=== PATIENT | male | born 1990 | race American Indian/Alaskan Native ===

== ENCOUNTER 2017-01-04 03:58 | Emergency (ER) | payer SELFPAY ==
[2017-01-04 04:04] VITALS: BP 123/80
--- NOTE | 2017-01-04 08:14 | Emergency Department Report ---
ED General Adult HPI - General Chief complaint: Rectal Pain Stated complaint: RECTAL PAIN Time Seen by Provider: 01/04/17 07:13 Source: patient Mode of arrival: Ambulatory Limitations: No Limitations - History of Present Illness Initial comments: This is a 26-year-old male nontoxic, well nourished in appearance, no acute signs of distress presents to the ED complaining ofh hemorrhoidal pain intermittent 2 years. Patient denies follow-up with a general surgeon or primary care doctor. Patient said he has been dealing with this got to the ER which has been relieved at times and comes back intermittently. Patient denies any rectal bleeding, nausea, vomiting, chest pain, shortness of breath, numbness , tingling, headache or stiff neck. Denies any fever. Denies any allergies. Past medical history includes hemorrhoids. MD Complaint: hemorrhoids -: year(s) Radiation: non-radiation Severity scale (0 -10): 6 Quality: aching Consistency: intermittent Improves with: none Worsens with: none Associated Symptoms: denies other symptoms. denies: confusion, chest pain, cough, diaphoresis, fever/chills, headaches, loss of appetite, malaise, nausea/ vomiting, rash, seizure, shortness of breath, syncope, weakness Treatments Prior to Arrival: none - Related Data Previous Rx's Medication Instructions Recorded Last Taken Type Fluticasone [Flonase] 1 spray NS QDAY #1 bottle 05/23/16 Unknown Rx Ibuprofen [Motrin 600 MG tab] 600 mg PO Q8H PRN #30 tablet 05/23/16 Unknown Rx guaiFENesin/DEXTROMETHORPHAN 1 each PO Q12H #24 tab 05/23/16 Unknown Rx [Mucinex Dm ER 1,200-60 mg Tab] Hydrocortisone/Lidocaine/Aloe 1 each RC Q6H #1 kit 01/04/17 Unknown Rx [Sabrina-Ede 2-2% Kit] Allergies Allergy/AdvReac Type Severity Reaction Status Date / Time No Known Allergies Allergy Unverified 05/23/16 03:12 ED Review of Systems ROS: Stated complaint: RECTAL PAIN Other details as noted in HPI Constitutional: denies: chills, fever Eyes: denies: eye pain, eye discharge, vision change ENT: denies: ear pain, throat pain Respiratory: denies: cough, shortness of breath, wheezing Cardiovascular: denies: chest pain, palpitations Endocrine: no symptoms reported Gastrointestinal: denies: abdominal pain, nausea, diarrhea Genitourinary: denies: urgency, dysuria Musculoskeletal: denies: back pain, joint swelling, arthralgia Skin: denies: rash, lesions Neurological: denies: headache, weakness, paresthesias Psychiatric: denies: anxiety, depression Hematological/Lymphatic: denies: easy bleeding, easy bruising ED Past Medical Hx - Past Medical History Additional medical history: Hemorrhoids - Surgical History Past Surgical History?: No - Social History Smoking Status: Current Every Day Smoker Substance Use Type: None - Medications Home Medications: Home Medications Medication Instructions Recorded Confirmed Last Taken Type Fluticasone [Flonase] 1 spray NS QDAY #1 bottle 05/23/16 Unknown Rx Ibuprofen [Motrin 600 MG tab] 600 mg PO Q8H PRN #30 tablet 05/23/16 Unknown Rx guaiFENesin/DEXTROMETHORPHAN 1 each PO Q12H #24 tab 05/23/16 Unknown Rx [Mucinex Dm ER 1,200-60 mg Tab] Hydrocortisone/Lidocaine/Aloe 1 each RC Q6H #1 kit 01/04/17 Unknown Rx [Sabrina-Ede 2-2% Kit] ED Physical Exam - General Limitations: No Limitations General appearance: alert, in no apparent distress - Head Head exam: Present: atraumatic, normocephalic, normal inspection - Eye Eye exam: Present: normal appearance, PERRL, EOMI. Absent: scleral icterus, conjunctival injection, nystagmus, periorbital swelling, periorbital tenderness Pupils: Present: normal accommodation - ENT ENT exam: Present: normal exam, normal orophraynx, mucous membranes moist, TM's normal bilaterally, normal external ear exam - Neck Neck exam: Present: normal inspection, full ROM. Absent: tenderness, meningismus, lymphadenopathy, thyromegaly - Respiratory Respiratory exam: Present: normal lung sounds bilaterally. Absent: respiratory distress, wheezes, rales, rhonchi, stridor, chest wall tenderness, accessory muscle use, decreased breath sounds, prolonged expiratory - Cardiovascular Cardiovascular Exam: Present: regular rate, normal rhythm, normal heart sounds. Absent: bradycardia, tachycardia, irregular rhythm, systolic murmur, diastolic murmur, rubs, gallop - GI/Abdominal GI/Abdominal exam: Present: soft, normal bowel sounds. Absent: distended, tenderness, guarding, rebound, rigid, diminished bowel sounds - Rectal Rectal exam: Present: deferred, normal inspection, normal rectal tone, hemorrhoids (reducible). Absent: heme (+) stool - Extremities Exam Extremities exam: Present: normal inspection, full ROM, normal capillary refill. Absent: tenderness, pedal edema, joint swelling, calf tenderness - Back Exam Back exam: Present: normal inspection, full ROM. Absent: tenderness, CVA tenderness (R), CVA tenderness (L), muscle spasm, paraspinal tenderness, vertebral tenderness, rash noted - Neurological Exam Neurological exam: Present: alert, oriented X3, CN II-XII intact, normal gait, reflexes normal - Psychiatric Psychiatric exam: Present: normal affect, normal mood - Skin Skin exam: Present: warm, dry, intact, normal color. Absent: rash ED Course Vital Signs 01/04/17 04:02 Temperature 97.4 F L Pulse Rate 53 L Respiratory 18 Rate Blood Pressure 123/80 O2 Sat by Pulse 100 Oximetry - Reevaluation(s) Reevaluation #1: 01/04/17 08:13 Patient is speaking in full sentences with no signs of distress noted. ED Medical Decision Making - Medical Decision Making 26-year-old male that presents with hemorrhoids. Hemorrhoids are reducible. Negative hemoccult. Patient is stable and was examiend by myself. Patient educated on importance of fiber intake and will be educated on sitz bath. Patient received topical hydrocortisone/lidocaine for rectal pain. Patient was instructed to follow-up with a primary care doctor in 3-5 days or if symptoms worsen and continue return to emergency room as soon as possible possible. Patient is hemodynamically stable with stable vital signs. At time time of discharge, the patient does not seem toxic or ill in appearance. No acute signs of distress noted. Patient agrees to discharge treatment plan of care. No further questions noted by the patient. Critical care attestation.: If time is entered above; I have spent that time in minutes in the direct care of this critically ill patient, excluding procedure time. ED Disposition Clinical Impression: Hemorrhoids Qualifiers: Hemorrhoid type: unspecified Qualified Code(s): K64.9 - Unspecified hemorrhoids Disposition: TO HOME OR SELFCARE Is pt being admited?: No Does the pt Need Aspirin: No Condition: Stable Instructions: Hemorrhoids (ED), High Fiber Diet (ED), Sitz Bath (GEN) Additional Instructions: Increase daily fiber and perform sitz bath as educated and instructed in the emergency room. Follow-up with your primary care doctor in 3-5 days or if symptoms worsen and continue return to emergency room as soon as possible. Prescriptions: Hydrocortisone/Lidocaine/Aloe [Sabrina-Ede 2-2% Kit] 1 each RC Q6H #1 kit Referrals: PRIMARY CAREMD [Primary Care Provider] - 3-5 Days CHINO BAKER MD [Staff Physician] - 3-5 Days [facility] [Outside] - 3-5 Days [facility] [Outside] - 3-5 Days Forms: Work/School Release Form(ED)
== END 2017-01-04 08:49 | disposition home or self-care (01) ==
LOC: ED 03:58
DX: K64.9 Unspecified hemorrhoids (principal); F17.200 Nicotine dependence, unspecified, uncomplicated
CPT/HCPCS: 99282

== ENCOUNTER 2017-03-10 02:42 | Emergency (ER) | payer OTHER ==
[2017-03-10 03:07] VITALS: BP 120/96
--- NOTE | 2017-03-10 05:19 | Emergency Department Report ---
Minor Respiratory - HPI Chief Complaint: Sore Throat Stated Complaint: SORE THROAT Time Seen by Provider: 03/10/17 05:18 Duration: 5 Days Pain Location: Throat, Ear Severity: severe (7 out of 10, aching. Taking [id number] cough and cold medication and not helping. Patient on penicillin for treatment of toothache which he still on.) Minor Respiratory: Yes Rhinorrhea (nasal congestion and drainage), Yes Sore Throat (Denies any droolong), Yes Able to Tolerate Fluids, Yes Ear Pain ( bilateral ear pain without any drainage), Yes Cough (cough and worse at night), Yes Fever, No Sick Contacts, No Hemoptysis, No Chest Pain, No Shortness of Breath Other History: Patient reports that he has been having sore throat, earache, fevers for 4-5 days and was recently treated for toothache and diagnosed with upper respiratory tract infection at [facility]. Patient said that he was placed on penicillin for his toothache but he still have an nasal drainage, cough and congestion. Denies any sinus pain or pressure. Taking over-the- counter medication for pain without any complete relief. ED Review of Systems ROS: Stated complaint: SORE THROAT Other details as noted in HPI Comment: All other systems reviewed and negative Constitutional: no symptoms reported Eyes: denies: eye pain, eye discharge ENT: ear pain, throat pain, congestion. denies: dental pain, epistaxis Respiratory: cough. denies: shortness of breath, SOB with exertion, SOB at rest , stridor, wheezing Cardiovascular: denies: chest pain, palpitations, dyspnea on exertion, orthopnea , edema, syncope, paroxysmal nocturnal dyspnea Gastrointestinal: denies: abdominal pain, nausea, vomiting, diarrhea, constipation, hematemesis Genitourinary: denies: dysuria, hematuria, discharge Musculoskeletal: denies: back pain, joint swelling, arthralgia, myalgia Skin: denies: rash Neurological: denies: headache, weakness, numbness, paresthesias, confusion, abnormal gait, vertigo ED Past Medical Hx - Past Medical History Previous Medical History?: Yes Additional medical history: Hemorrhoids - Surgical History Past Surgical History?: No - Family History Family history: no significant - Social History Smoking Status: Never Smoker Substance Use Type: None - Medications Home Medications: Home Medications Medication Instructions Recorded Confirmed Last Taken Type guaiFENesin/DEXTROMETHORPHAN 1 each PO Q12H #24 tab 05/23/16 Unknown Rx [Mucinex Dm ER 1,200-60 mg Tab] Hydrocortisone/Lidocaine/Aloe 1 each RC Q6H #1 kit 01/04/17 Unknown Rx [Sabrina-Ede 2-2% Kit] Cetirizine HCl [ZyrTEC] 10 mg PO QAM 14 Days #14 capsule 03/10/17 Unknown Rx Fluticasone [Flonase] 1 spray NS QDAY 14 Days #1 bottle 03/10/17 Unknown Rx Ibuprofen [Motrin 600 MG tab] 600 mg PO Q8H PRN 4 Days #12 tablet 03/10/17 Unknown Rx Minor Respiratory Exam - Exam General: Vital signs noted. No distress. Alert and acting appropriately. 26-year-old male well-nourished well-developed in no acute distress, nontoxic in appearance. HEENT: Yes Moist Mucous Membranes, Yes Rhinorrhea (Lino congestion. No maxillary or frontal sinus tenderness. Nasal mucosa pale and boggy.), No Pharyngeal Erythema (uvula is midline, no trismus, tongue is normal, oral airways patent. No peritonsillar abscess.), No Pharyngeal Exudates, No Conjuctival Injection, No Frontal Tenderness, No Maxillary Tenderness Ear: Neither TM Bulge (lateral TM congested without any erythema or perforation. ), Neither TM Erythema, Neither EAC Pain (nontender to palpate, no erythema or swelling. No drainage), Neither EAC Discharge Neck: Yes Supple (full range of motion, no C-spine tenderness and no muscular tenderness), No Adenopathy Lungs: Yes Good Air Exchange, No Wheezes, No Ronchi, No Stridor, No Cough, No Labored Respirations, No Retractions, No Use of Accessory Muscles, No Other Abnormal Lung Sounds Heart: Yes Regular (S1, S2. reg Rate and rhythm.), No Murmur Abdomen: Yes Normal Bowel Sounds (N QUADRANTS.), No Tenderness (soft, nontender to palpate in all quadrants. No rigidity or distention.), No Peritoneal Signs Skin: No Rash, No Edema Neurologic: Alert and oriented, no deficits. Alert and oriented 3, normal gait. Normal reflexes and no motor or sensory deficit Musculoskeletal: Unremarkable. Musculoskeletal/EXT:no clubbing, cyanosis or edema. +2 pedal pulses. No neurovascular compromise. Patient with full range of motion all extremities with +5/5 strength in all extremities. No joint crepitus, deformity, effusion, erythema. Extremities without laceration, contusion or abrasion. Patient will good color, sensation, movement and temperature to all extremities. ED Course Vital Signs 03/10/17 03/10/17 03:01 03:06 Temperature 98.2 F Pulse Rate 78 80 Respiratory 16 Rate Blood Pressure 120/96 Blood Pressure 120/96 [Right] O2 Sat by Pulse 98 96 Oximetry - Reevaluation(s) Reevaluation #1: 03/10/17 06:20 stable throughout ED stay ED Medical Decision Making - Medical Decision Making ED course: Here with complaint of upper respiratory symptoms and reported that he was treated for sore throat recently at [facility] and was diagnosed with upper respiratory tract infection. Patient said he was placed on penicillin for his sore throat which is taken 4 times a day and he is still taken penicillin. He has not followed up with a dentist as yet and he is also not having any toothache at this present. Patient found to have allergic rhinitis, nasal congestion and rhinorrhea. I discussed patient that he will need Flonase and Zyrtec and he can take Motrin for sore throat and earache but he has allergic rhinitis which is not a bacterial infection. I discussed with him that he can take his penicillin for tooth problem but he will need to follow up with a dentist to correct underlying tooth issues or toothache will return. As understanding and discharged home with prescription for Flonase, Zyrtec and Motrin and also instructed that he can follow-up with [facility] for primary care visit for nonemergent problem . Critical care attestation.: If time is entered above; I have spent that time in minutes in the direct care of this critically ill patient, excluding procedure time. ED Disposition Clinical Impression: Otalgia of both ears Allergic rhinitis Qualifiers: Chronicity: acute Allergic rhinitis trigger: unspecified Allergic rhinitis seasonality: unspecified seasonality Qualified Code(s): J30.9 - Allergic rhinitis, unspecified Pharyngitis Qualifiers: Pharyngitis/tonsillitis etiology: unspecified etiology Qualified Code(s): J02.9 - Acute pharyngitis, unspecified Disposition: TO HOME OR SELFCARE Is pt being admited?: No Does the pt Need Aspirin: No Condition: Stable Instructions: Allergic Rhinitis (ED), Acute Cough (ED), Earache (ED), Pharyngitis (ED) Additional Instructions: Please increase her fluid intake Flush nostrils with saline nasal spray take antibiotic as prescribed F/U with primary care physician as instructed Follow-up at [facility] for management of minor medical problems. See discharge instruction paperwork for address and phone number called to schedule an appointment today. Prescriptions: Cetirizine HCl [ZyrTEC] 10 mg PO QAM 14 Days #14 capsule Fluticasone [Flonase] 1 spray NS QDAY 14 Days #1 bottle Ibuprofen [Motrin 600 MG tab] 600 mg PO Q8H PRN 4 Days #12 tablet PRN Reason: Pain Referrals: [facility] [Outside] - 03/11/17 Forms: Work/School Release Form(ED)
== END 2017-03-10 06:30 | disposition home or self-care (01) ==
LOC: ED 02:42
DX: J30.9 Allergic rhinitis, unspecified (principal); J02.9 Acute pharyngitis, unspecified; H92.03 Otalgia, bilateral
CPT/HCPCS: 87116; 87400; 87430; 99283